=== PATIENT | female | born 1950 | race African-American/Black ===

== ENCOUNTER → 2017-10-10 17:10 | Emergency (ER) | payer MEDICARE, OTHER ==
[~2017-10-10 17:10] MED LIST: Acetaminophen TAB* 325 MG PO ONE; Amoxicillin/Clavulanate TAB* 500 MG PO ONE; SUMAtriptan TAB* 25 MG PO ONE; Silver Nitrate/Potassium Nitr* 1 EA STICK ONE
--- NOTE | 2017-10-10 19:30 | RAD ---
indication: Laceration to nose after hockey pUCK injury COMPARISON: None A CT scan of the brain, maxillofacial bones and c-spine was performed without intravenous contrast enhancement. Contiguous axial sections were obtained from the lung apices through the vertex of the skull. BRAIN: The ventricles, cisterns and sulci are within normal limits. No significant focal abnormality or mass effect is seen. The guillermo-white differentiation is adequately maintained. There is no evidence for intracranial hemorrhage. The calvarium is intact without radiographically apparent fracture. The mastoid air cells are appropriately aerated. FACIAL BONES: Bones: There is a minimally displaced fracture involving the right nasal bone. There is subcutaneous gas in the cartilage overlying the nasal bone. The orbital rim is intact. The zygomatic arch is intact. The pterygoid plates are intact. Incidentally noted is packing in the right nares. Orbits: The globes are round. The optic nerves are symmetric. The extraocular musculature is normal. There is no post septal or intraconal inflammatory change. There is no retrobulbar hematoma. Paranasal Sinuses: The paranasal sinuses are clear. C-SPINE: On the sagittal view images there is mild reversal of the normal cervical lordosis. The vertebral bodies and facet joints are otherwise appropriately aligned. Multilevel degenerative changes include loss of intervertebral disc height and marginal osteophyte formation. These degenerative changes are most severe at C5-T1. At the same levels there is uncovertebral hypertrophy depicted better on the coronal plane images. There is no prevertebral soft tissue swelling. There is no hyperdense material in the cervical canal to indicate hemorrhage. The visualized musculature and soft tissues are normal. There is no gross lymphadenopathy visualized. The visualized portion of the lung apices are clear. IMPRESSION: 1. No calvarial fracture or acute intracranial hemorrhage. 2. Minimally depressed right-sided nasal bone fracture. 3. Nonspecific reversal of the normal cervical lordosis and degenerative changes of the cervical spine without evidence of acute fracture or dislocation.
--- NOTE | 2017-10-10 21:31 | ED ---
Head Injury - HPI Summary HPI Summary: 67F presents with nasal injury today. She was playing hockey and the puck hit her in the nose and her nose started to bleed. There was no LOC. She has a mild headache and states that she has migraines and hopes she does not develop one. She denies any nausea or vomiting. She is not on blood thinners. She admits to bleeding from right nares and has small laceration of right nares. She admits to dizziness. She admits to some blurry vision. She denies any neck pain. She denies any other trauma. She has not taken anything for pain. pain is 5/10. She believes immunizations are up to date. - History Of Current Complaint Chief Complaint: EDFacialInjury Stated Complaint: INJURY TO NOSE Time Seen by Provider: 10/10/17 18:32 Pain Intensity: 5 - Allergies/Home Medications Allergies/Adverse Reactions: Allergies Allergy/AdvReac Type Severity Reaction Status Date / Time Aspirin [ASA] Allergy Hives Verified 10/10/17 17:30 Codeine Allergy Headache Verified 10/10/17 17:30 Morphine Allergy Headache Verified 10/10/17 17:30 Prochlorperazine Allergy See Comment Verified 10/10/17 17:30 [From Compazine] Tetracycline Allergy Headache Verified 10/10/17 17:30 PMH/Surg Hx/FS Hx/Imm Hx Infectious Disease History: No Infectious Disease History: Denies: Traveled Outside the [place] in Last 30 Days - Social History Alcohol Use: Occasionally Substance Use Type: Reports: None Smoking Status (MU): Never Smoked Tobacco Review of Systems Negative: Fever Positive: Epistaxis, Other - facial pain Positive: Other - laceration nares Positive: Headache All Other Systems Reviewed And Are Negative: Yes Physical Exam Triage Information Reviewed: Yes Vital Signs On Initial Exam: Initial Vitals Temp Pulse Resp BP Pulse Ox 98 F 89 20 157/87 98 10/10/17 17:14 10/10/17 17:14 10/10/17 17:14 10/10/17 17:14 10/10/17 17:14 Vital Signs Reviewed: Yes Appearance: Positive: Well-Appearing Skin: Positive: Warm, Dry, Other - 1cm superficial laceration on right nares Head/Face: Positive: Normal Head/Face Inspection, Other - no step off, racoon eyes, faustin sign Eyes: Positive: Normal, EOMI, SAMIRA, Conjunctiva Clear ENT: Positive: Normal ENT inspection, Pharynx normal, TMs normal, Other - area of active bleeding in right nares Respiratory/Lung Sounds: Positive: Clear to Auscultation, Breath Sounds Present Cardiovascular: Positive: Normal, RRR Musculoskeletal: Positive: Normal Neurological: Positive: Sensory/Motor Intact, Alert, Oriented to Person Place, Time, CN Intact II-III Psychiatric: Positive: Normal - [place] Coma Scale Coma Scale Total: 15 Procedures - Procedure Summary Procedure Summary: right nares epistaxis applied cetacaine use silver nitrate to cauterize area no bleeding after cauterized - Laceration/Wound Repair 1 Location: Other - nares Description: Linear Length, Depth and Shape: 1cm superficial Irrigated w/ Saline (ccs): 20 Closure: Skin Adhesive Diagnostics - Vital Signs Vital Signs Temp Pulse Resp BP Pulse Ox 10/10/17 17:14 98 F 89 20 157/87 98 - Laboratory Lab Statement: Any lab studies that have been ordered have been reviewed, and results considered in the medical decision making process. - CT brain, neck, maxillaryfacial CT Interpretation: Positive (See Comments) - IMPRESSION: 1. No calvarial fracture or acute intracranial hemorrhage. 2. Minimally depressed right-sided nasal bone fracture. 3. Nonspecific reversal of the normal cervical lordosis and degenerative changes of the cervical spine without evidence of acute fracture or dislocation. CT Interpretation Completed By: Radiologist Re-Evaluation - Re-Evaluation First Eval Re-Evaluation Time: 21:45 Change: Improved Comment: no active bleeding after caudtry Head Injury Course/Dx Course Of Treatment: 67F presents with nasal injury today. She was playing hockey and the puck hit her in the nose and her nose started to bleed. There was no LOC. She has a mild headache and states that she has migraines and hopes she does not develop one. She denies any nausea or vomiting. She is not on blood thinners. She admits to bleeding from right nares and has small laceration of right nares. She admits to dizziness. She admits to some blurry vision. She denies any neck pain. She denies any other trauma. She has not taken anything for pain. pain is 5/10. She believes immunizations are up to date. on exam normal neuro exam. has 1cm superificial laceration on nares that cleaned and closed with glue. has area of oozing in right nares that cauterized. CT brain normal. CT maxillary facial shows nasal fracture so will place on augmentin and have follow up with ENT. caution that may have concussion so will have follow up with primary. gave imitrex dose to go incase develops migraine as patient does not have meds with her as is traveling. patient understand and agrees with plan. - Diagnoses Differential Diagnosis/HQI/PQRI: Contusion, Intracranial Bleed, Laceration, Nasal Fracture, Other - epistaxis Provider Diagnoses: Nasal fracture, Head injury, Epistaxis, Nasal laceration Discharge - Discharge Plan Condition: Good Disposition: HOME Prescriptions: Amoxicillin/Clavulanate TAB* [Augmentin TAB 500 mg*] 500 mg PO BID #19 tab Patient Education Materials: Nasal Fracture (ED), Nosebleed (ED), Head Injury ( ED), Skin Adhesive Care (ED) Referrals: Non Staff,Doctor [Primary Care Provider] - Julio Palm MD [Medical Doctor] - Additional Instructions: Take antibiotic twice a day for 10 days Follow up with ENT for nasal fracture Glue will fall off on own, keep it dry next 24 hours Take Tylenol every [address] ice on area Follow up with primary within 5 days Return to ED if develop any new or worsening symptoms
[2017-10-10 22:23] VITALS: BP 144/76
== END | disposition home or self-care (01) ==
LOC: ED 17:10
DX: S02.2XXA Fracture of nasal bones, initial encounter for closed fracture (principal); R04.0 Epistaxis; S09.90XA Unspecified injury of head, initial encounter; S01.21XA Laceration without foreign body of nose, initial encounter; W21.220A Struck by ice hockey puck, initial encounter; Y93.22 Activity, ice hockey; Z88.6 Allergy status to analgesic agent; Z88.3 Allergy status to other anti-infective agents; Z88.5 Allergy status to narcotic agent; Z88.8 Allergy status to other drugs, medicaments and biological substances
CPT/HCPCS: 12011; 30901; 70450; 70486; 72125; 99282; A9270-GY

== ENCOUNTER 2017-10-12 06:59 | Emergency (ER) | payer MEDICARE, OTHER ==
[2017-10-12] MEDS ORDERED: Ondansetron INJ* 2 MG/ML VIAL IV ONE ×2 (07:09→10:51)
[2017-10-12] MEDS ORDERED: NS 0.9% 1000 ML* 2,000 ML IV ONE (07:31)
[2017-10-12 07:52] LABS: EGFR Non-African American 62.8 (>60)
[2017-10-12 07:53] LABS: Hematocrit 40 % (35-47); Hemoglobin 12.9 g/dl (12.0-16.0); Mean Corpuscular HGB Conc 32 g/dl (31-36); Mean Corpuscular Hemoglobin 26 pg (27-31); Mean Corpuscular Volume 79 fL (80-97); Mean Platelet Volume 9 um3 (7.4-10.4); Platelet Count 304 10^3/ul (150-450); Red Blood Count 5.06 10^6/ul (4.0-5.4); Red Cell Distribution Width 15 % (10.5-15); White Blood Count 10.2 10^3/ul (3.5-10.8)
[2017-10-12 12:11] VITALS: BP 144/84
--- NOTE | 2017-10-12 12:13 | ED ---
Wilmer Fischer Tecjoon, scribed for Gasper Parson MD on 10/12/17 at 0739 . GI/ HPI - HPI Summary HPI Summary: This patient is a 67 year old female BIBA to [facility] accompanied by family with a chief complaint of nausea and vomiting since approx. 0300 this morning. Patient s children state that she woke up this morning with constant vomiting and retching. The pain is rated 2/10 in severity. Symptoms aggravated by nothing. Symptoms alleviated by nothing. Patients children additionally reports diarrhea , slight abd pain. At time of exam, patient was asleep and states she is feeling marginally better. Patient is currently taking amoxicillin to treat a facial injury. - History of Current Complaint Chief Complaint: EDNauseaVomitDiarrh Time Seen by Provider: 10/12/17 07:31 Stated Complaint: VOMITING/DIARRHEA Hx Obtained From: Patient Onset/Duration: Started Hours Ago, Still Present Timing: Constant Severity: Moderate Pain Intensity: 2 - /10 Location of Pain: Diffuse Associated Signs and Symptoms: Positive: Other: - diarrhea, abd pain, nausea, vomiting Aggravating Factor(s): Nothing Alleviating Factor(s): Nothing - Allergy/Home Medications Allergies/Adverse Reactions: Allergies Allergy/AdvReac Type Severity Reaction Status Date / Time Aspirin [ASA] Allergy Hives Verified 10/10/17 17:30 Codeine Allergy Headache Verified 10/10/17 17:30 Morphine Allergy Headache Verified 10/10/17 17:30 Prochlorperazine Allergy See Comment Verified 10/10/17 17:30 [From Compazine] Tetracycline Allergy Headache Verified 10/10/17 17:30 PMH/Surg Hx/FS Hx/Imm Hx Previously Healthy: Yes Opthamlomology History: Denies: Hx Legally Blind EENT History: Denies: Hx Deafness Infectious Disease History: No Infectious Disease History: Denies: Traveled Outside the [place] in Last 30 Days - Family History Known Family History: Positive: Hypertension - Social History Lives: With Family Alcohol Use: Occasionally Hx Substance Use: No Substance Use Type: Reports: None Hx Tobacco Use: No Smoking Status (MU): Never Smoked Tobacco Review of Systems Negative: Fever Positive: Abdominal Pain, Vomiting, Diarrhea, Nausea All Other Systems Reviewed And Are Negative: Yes Physical Exam - Summary Physical Exam Summary: VITAL SIGNS: Reviewed. GENERAL: Patient is a well developed and nourished female who is lying comfortable in the stretcher. Patient is not in any acute respiratory distress. HEAD AND FACE: Normocephalic EYES: PERRLA, EOMI x 2. EARS: Hearing grossly intact. MOUTH: Oropharynx within normal limits. NECK: Supple, trachea is midline, no adenopathy, no JVD, no carotid bruit. CHEST: Symmetric, no tenderness at palpation LUNGS: Clear to auscultation bilaterally. No wheezing or crackles. CVS: Regular rate and rhythm, S1 and S2 present, no murmurs or gallops appreciated. ABDOMEN: Soft, non-tender. Bowel sounds are normal. No abdominal abnormal pulsations. EXTREMITIES: Full ROM in all major joints, no edema, no cyanosis or clubbing. NEURO: Alert and oriented x 3. No acute neurological deficits. Speech is normal and follows commands. SKIN: Dry and warm Triage Information Reviewed: Yes Vital Signs On Initial Exam: Initial Vitals Temp Pulse Resp BP Pulse Ox 98.0 F 106 15 174/96 96 10/12/17 07:01 10/12/17 07:01 10/12/17 07:01 10/12/17 07:01 10/12/17 07:01 Vital Signs Reviewed: Yes Diagnostics - Vital Signs Vital Signs Temp Pulse Resp BP Pulse Ox 10/12/17 07:01 98.0 F 106 15 174/96 96 - Laboratory Lab Results: Lab Results 10/12/17 10/12/17 Range/Units 07:25 07:25 WBC 10.2 (3.5-10.8) 10^3/ul RBC 5.06 (4.0-5.4) 10^6/ul Hgb 12.9 (12.0-16.0) g/dl Hct 40 (35-47) % MCV 79 L (80-97) fL MCH 26 L (27-31) pg MCHC 32 (31-36) g/dl RDW 15 (10.5-15) % Plt Count 304 (150-450) 10^3/ul MPV 9 (7.4-10.4) um3 Sodium 138 (133-145) mmol/L Potassium 3.7 (3.5-5.0) mmol/L Chloride 104 (101-111) mmol/L Carbon Dioxide 24 (22-32) mmol/L Anion Gap 10 (2-11) mmol/L BUN 14 (6-24) mg/dL Creatinine 0.90 (0.51-0.95) mg/dL Est GFR ( Amer) 80.8 (>60) Est GFR (Non-Af Amer) 62.8 (>60) BUN/Creatinine Ratio 15.6 (8-20) Glucose 139 H (70-100) mg/dL Calcium 10.1 (8.6-10.3) mg/dL Total Bilirubin 0.30 (0.2-1.0) mg/dL AST 24 (13-39) U/L ALT 20 (7-52) U/L Alkaline Phosphatase 107 H (34-104) U/L C-Reactive Protein 5.87 H (< 5.00) mg/L Total Protein 8.3 (6.4-8.9) g/dL Albumin 4.6 (3.2-5.2) g/dL Globulin 3.7 (2-4) g/dL Albumin/Globulin Ratio 1.2 (1-3) Amylase 74 (29-103) U/L Lipase 78 (11.0-82.0) U/L Result Diagrams: 10/12/17 07:25 10/12/17 07:25 Lab Statement: Any lab studies that have been ordered have been reviewed, and results considered in the medical decision making process. GIGU Course/Dx - Course Course Of Treatment: This patient is a 67 year old female BIBA to [facility] accompanied by family with a chief complaint of nausea and vomiting since approx. 0300 this morning. Patients children state that she woke up this morning with constant vomiting and retching. The pain is rated 1/10 in severity. Symptoms aggravated by nothing. Symptoms alleviated by nothing. Patients children additionally reports diarrhea, slight abd pain. At time of exam, patient was asleep and states she is feeling better. Patient is currently taking amoxicillin to treat a facial injury. Bloodwork Obtained and found to be w/o a significant abnormality. Urinalysis Obtained. In the ED course the patient was given Zofran and IV fluids. After medications patient is feeling better. Patient will be discharged with a diagnosis for nausea, vomiting, diarrhea and written a prescription for Zofran. The patient is advised to follow up with PCP in 3 days. The patient is agreeable with this plan. - Diagnoses Differential Diagnoses - Female: Gastritis, Gastroenteritis (Viral), Vomiting Provider Diagnoses: Nausea, Vomiting, Diarrhea Discharge - Discharge Plan Condition: Stable Disposition: HOME Prescriptions: Ondansetron ODT TAB* [Zofran 4 MG Odt TAB*] 4 mg PO Q6H PRN #10 tab.odt PRN Reason: Vomiting Patient Education Materials: Acute Nausea and Vomiting (ED), Acute Diarrhea (ED ) Referrals: Non Staff,Doctor [Primary Care Provider] - 3 Days Additional Instructions: The patient is advised to follow up with PCP in 3 days. Use Zofran as directed. The patient is agreeable with this plan. Return to the ED for persisting or worsening symptoms. The documentation as recorded by the Wilmer forrester Tecjoon accurately reflects the service I personally performed and the decisions made by Eb dye Walter, MD.
[2017-10-12 12:41] LABS: Urine Appearance Clear; Urine Blood Negative (Negative); Urine Color Straw; Urine Ketones Negative (Negative); Urine Protein 1+(30 mg/dL) (Negative); Urine Specific Gravity 1.012 (1.010-1.030); Urine Urobilinogen Negative (Negative)
== END 2017-10-12 12:24 | disposition home or self-care (01) ==
LOC: ED 06:59
DX: R19.7 Diarrhea, unspecified (principal); R10.9 Unspecified abdominal pain; R11.2 Nausea with vomiting, unspecified
CPT/HCPCS: 36415; 80053; 81003; 81015; 82150; 83690; 85027; 86140; 99284; J2405

== ENCOUNTER 2024-04-06 17:24 | Observation (INO) ==
[2024-04-06] MEDS: Ondansetron 4 mg VIAL 2 MG/ML 2 ml VIAL IV ONE ×2 (17:52→19:38)
[2024-04-06] MEDS: Lactated Ringers 1000 ml BAG 1,000 ML IV ONE (17:56)
[2024-04-06] MEDS: fentaNYL 100 mcg/2 ml 50 MCG/ML VIAL IV SLOW PU ONE ×2 (18:21→19:37)
[2024-04-06 18:29] LABS: ABS Basophils 0.1 10^3/uL (0.0-0.1); ABS Eosinophils 0.1 10^3/uL (0.0-0.5); ABS Lymphocytes 1.9 10^3/uL (1.0-4.8); ABS Monocytes 0.4 10^3/uL (0.0-0.9); ABS Neutrophils 9.1 10^3/uL (1.5-7.6); ABS Nucleated RBC 0.01 10^3/ul; Eosinophil % 0.7 %; Hematocrit 40.2 % (35-45); Lymphocyte % 16.4 %; Mean Corpuscular Hemoglobin 25.9 pg (27-33); Mean Corpuscular Hgb Conc 32.3 g/dL (31-36); Mean Corpuscular Volume 80.2 fL (80-97); Mean Platelet Volume 8.7 fL (7.5-11.2); Nucleated Red Blood Cells % 0.1 %/100WBC (0.0-0.8); Platelet Count 331 10^3/uL (150-450); Red Blood Count 5.01 10^6/uL (3.63-4.92); Red Cell Distribution Width 14.6 % (12-17); White Blood Count 11.5 10^3/uL (3.8-11.8)
[2024-04-06 18:59] LABS: Albumin 4.6 g/dL (3.2-5.2); Albumin/Globulin Ratio 1.2 (1-3); C Reactive Protein 4.24 mg/L (<8.01); Calcium 9.8 mg/dL (8.6-10.3); Creatinine, Serum 0.98 mg/dL (0.51-0.95); Globulin 3.7 g/dL (2-4); Potassium 3.7 mmol/L (3.5-5.0); Total Bilirubin 0.4 mg/dL (0.2-1.0); Total Protein 8.3 g/dL (6.4-8.9); eGFR CKD-EPI 61.7 (>60)
[2024-04-06 20:52] LABS: Urine Appearance Clear; Urine Bilirubin Negative (Negative); Urine Blood Negative (Negative); Urine Color Colorless; Urine Glucose Trace (Negative); Urine Ketones 1+ (Negative); Urine Nitrite Negative (Negative); Urine Protein Negative (Negative); Urine Specific Gravity 1.008 (1.002-1.030); Urine Urobilinogen Negative (Negative); Urine pH 7.5 (5.0-8.0)
[2024-04-06] MEDS: HYDROmorphone 0.5 MG/0.5 ML SYRINGE IV ONE (23:30)
[2024-04-07] MEDS: Iohexol 350 (CONTRAST) 500 ML MDV IV ONE (00:22)
[2024-04-07] MEDS: Lactated Ringers 1000 ml BAG 1,000 ML IV ONE (03:27)
[2024-04-07] MEDS: metroNIDAZOLE IV 500 MG/100ML 500 MG/100 ML BAG IVPB ONE (03:27)
[2024-04-07] MEDS: cefTRIAXone 1 gm/50 mL D5W 1 GM/50 ML BAG IV ONE ×2 (04:26→05:41)
[2024-04-07] MEDS: HYDROmorphone 0.5 MG/0.5 ML SYRINGE IV SLOW PU PRN (05:03)
[2024-04-07] MEDS: Enoxaparin 40 MG/0.4 ML SYR SUBCUT SCH (05:41)
[2024-04-07 07:14] LABS: ABS Basophils 0.1 10^3/uL (0.0-0.1); ABS Lymphocytes 1.2 10^3/uL (1.0-4.8); ABS Monocytes 0.5 10^3/uL (0.0-0.9); ABS Neutrophils 7.9 10^3/uL (1.5-7.6); ABS Nucleated RBC 0.01 10^3/ul; Eosinophil % 0.1 %; Hematocrit 35.5 % (35-45); Hemoglobin 11.9 g/dL (11.5-14.3); Lymphocyte % 12.5 %; Mean Corpuscular Hemoglobin 26.6 pg (27-33); Mean Corpuscular Hgb Conc 33.6 g/dL (31-36); Mean Corpuscular Volume 79.1 fL (80-97); Mean Platelet Volume 8.5 fL (7.5-11.2); Nucleated Red Blood Cells % 0.1 %/100WBC (0.0-0.8); Platelet Count 299 10^3/uL (150-450); Red Blood Count 4.49 10^6/uL (3.63-4.92); Red Cell Distribution Width 14.4 % (12-17); White Blood Count 9.7 10^3/uL (3.8-11.8)
[2024-04-07 07:28] LABS: Calcium 9.1 mg/dL (8.6-10.3); Creatinine, Serum 0.9 mg/dL (0.51-0.95); Magnesium 1.6 mg/dL (1.9-2.7); eGFR CKD-EPI 68.3 (>60)
[2024-04-07] MEDS: Acetaminophen IV 1 GM/100ML 1,000 MG/100 ML BAG IV PRN (07:29)
[2024-04-07] MEDS: NS 0.9% 1000 ml BAG 1,000 ML IV SCH (07:38)
[2024-04-07] MEDS: Ondansetron 4 mg VIAL 2 MG/ML 2 ml VIAL IV PRN (07:55)
[2024-04-07] MEDS: Magnesium Sulfate 2 gm BAG 2 GM/50 ML BAG IVPB ONE (09:03)
[2024-04-07] MEDS: metroNIDAZOLE IV 500 MG/100ML 500 MG/100 ML BAG IVPB SCH (12:36)
[2024-04-08] MEDS: cefTRIAXone 2 gm/50 mL D5W 2 GM/50 ML BAG IV SCH (06:40)
[2024-04-08 06:54] LABS: Hemoglobin 12.1 g/dL (11.5-14.3); Mean Corpuscular Hemoglobin 26.6 pg (27-33); Mean Corpuscular Hgb Conc 33.5 g/dL (31-36); Mean Corpuscular Volume 79.4 fL (80-97); Mean Platelet Volume 8.4 fL (7.5-11.2); Platelet Count 295 10^3/uL (150-450); Red Blood Count 4.53 10^6/uL (3.63-4.92); Red Cell Distribution Width 14.5 % (12-17); White Blood Count 5.5 10^3/uL (3.8-11.8)
[2024-04-08] MEDS ORDERED: Polyethylene Glycol 3350 17 GM PACKET PO PRN (11:16)
[2024-04-08] MEDS ORDERED: Senna TAB 8.6 mg TAB PO PRN (11:16)
[2024-04-08] MEDS ORDERED: Magnesium Hydroxide LIQ 30 ML UDC PO PRN (11:16)
[2024-04-08 14:24] VITALS: BP 130/71
[2024-04-08] MEDS: metroNIDAZOLE IV 500 MG/100ML 500 MG/100 ML BAG IVPB SCH (14:40)
[2024-04-08] MEDS ORDERED: Magnesium Hydroxide LIQ 30 ML UDC PO SCH (21:00)
== END 2024-04-08 18:55 | disposition home or self-care (01) ==
LOC: ED 17:24 → EDHOLD 17:24 → SUATTDRO 04-07 04:21 → SSU 04-07 07:11
PROVIDERS: ADMIT Hospitalist; ATTEND Internal Medicine